=== PATIENT | female | born 1975 | race Caucasian/White ===

== ENCOUNTER → 2016-08-22 | Outpatient (CLI) | payer BC ==
--- NOTE | 2016-08-22 18:58 | Diagnostic Imaging Report ---
DIGITAL MAMMO BILAT DIAGNOSTIC COMPARISON: 04/15/15. Targeted left breast ultrasound performed 08/22/2016. INDICATION: Left breast palpable abnormality. TECHNIQUE: Digital diagnostic mammography of bilateral breasts was performed with a computer-aided detection (CAD) system. Targeted ultrasound of the left breast was also performed, and dictated separately. FINDINGS: The breasts are extremely dense, which lowers the sensitivity of mammography. A skin marker was placed on the left breast near the 11 o'clock position to correspond to area of palpable concern. There is suggestion of a few scattered isodense masses with obscured margins due to dense breast tissue. These likely correspond to the multiple cysts seen on ultrasound. No suspicious microcalcifications or architectural distortion to suggest malignancy in the left breast. No abnormality in the right breast to suggest malignancy. IMPRESSION: 1. Area of palpable concern corresponds to a simple cyst as better characterized on ultrasound. No mammographic evidence of malignancy. 2. Recommend patient return to routine bilateral annual screening mammogram in 12 months. ACR BI-RADS Category 2: Benign findings. Result letter will be mailed to the patient. Note: At least 10% of breast cancer is not imaged by mammography. Dictated by: Dictated on workstation # [id number]
--- NOTE | 2016-08-22 19:02 | Diagnostic Imaging Report ---
PROCEDURE: US breast limited, left. TECHNIQUE: Multiple realtime grayscale images were obtained over the left breast in various projections. INDICATION: Palpable abnormality in the left breast. COMPARISON: Left breast ultrasound of 04/25/2015 and diagnostic mammogram performed on 08/22/2016. FINDINGS: At the area of palpable concern at the 11:00 position, there is a small group of simple cysts. The largest cyst measures 1.8 x 1.6 x 1.5 cm and has good posterior acoustic enhancement. There are additional smaller cysts scattered around the 11:00 region. At the 1:00 and 2:00 position, there are again noted anechoic simple cysts, the largest is again at the 2:00 position, measuring 1.7 x 0.9 x 2.2 cm (previously 1.2 x 1.0 x 0.5 cm. No suspicious solid mass is identified. IMPRESSION: 1. Numerous simple cysts scattered throughout the left breast. The area of palpable concern at the 11:00 position corresponds to a simple cyst. 2. There are no suspicious mass lesions that would suggest malignancy by ultrasound. 3. Recommend patient return to routine bilateral annual mammogram screening in 12 months. ACR BI-RADS Category 2: Benign findings. Result letter will be mailed to the patient. Note: At least 10% of breast cancer is not imaged by mammography. Dictated by: Dictated on workstation # [id number]
== END ==
LOC: RAD 08:42
PROVIDERS: ATTEND Family Medicine
DX: N63 Unspecified lump in breast (principal); N60.02 Solitary cyst of left breast
CPT/HCPCS: 76642; G0204